=== PATIENT | male | born 1970 | race American Indian/Alaskan Native ===

== ENCOUNTER 2022-03-07 18:25 | Inpatient (IN) | payer OTHER ==
--- NOTE | 2022-03-07 19:41 | Event Note ---
Date: 03/07/22 Verbal report received from emergency medical services. EMS documentation not available at time of chart dictation Medical screening examination note: 51-year-old gentleman with a past history of stroke, presenting with weakness, lack of coordination, possible unsteady gait, last known well time is 6:00 AM yesterday morning. Patient is awake protecting airway and moving 4 extremities. Patient presents more than 24 hours after his last known well time. Therefore, tPA not indicated. Therefore, emergent CT angiogram head and neck not indicated. Check CT scan of the brain. Obtain EKG and appropriate laboratory studies. Detailed history and physical examination to be performed by oncoming provider Vital Signs 03/07/22 18:36 Temperature 98.6 F Pulse Rate 103 H Respiratory 20 Rate Blood Pressure 150/60 [Left] O2 Sat by Pulse 96 Oximetry
[2022-03-07 20:25] LABS: Basophils % (Auto) 0.7 % (0.0-1.8); Eosinophils % (Auto) 0.2 % (0.0-4.3); Hematocrit 47.2 % (35.5-45.6); Hemoglobin 15.2 gm/dl (11.8-15.2); Lymphocytes # (Auto) 2.7 K/mm3 (1.2-5.4); Lymphocytes % (Auto) 49.3 % (13.4-35.0); Mean Corpuscular HGB Conc 32 % (32-34); Mean Corpuscular Volume 88 fl (84-94); Monocytes # (Auto) 0.3 K/mm3 (0.0-0.8); Platelet Count 163 K/mm3 (140-440); Red Blood Count 5.37 M/mm3 (3.65-5.03); Red Cell Distribution Width 14.3 % (13.2-15.2)
[2022-03-07 20:27] LABS: Creatine Kinase MB 2.9 ng/mL (0.0-4.0)
[2022-03-07 20:29] LABS: Alanine Aminotransferase 23 units/L (7-56); Albumin 4.5 g/dL (3.9-5); BUN/Creatinine Ratio 15; Blood Urea Nitrogen 12 mg/dL (9-20); Calcium 9.5 mg/dL (8.4-10.2); Hemolysis Index 3
[2022-03-07 20:34] LABS: INR 0.98 (0.87-1.13)
[2022-03-07 20:35] LABS: Partial Thromboplastin Time 27.8 Sec. (24.2-36.6); Thrombin Time 18.5 Sec. (15.1-19.6)
--- NOTE | 2022-03-07 21:36 | Cat Scan Report ---
CT head/brain wo con INDICATION / CLINICAL INFORMATION: 51 years Male; Stroke symptoms. TECHNIQUE: Routine CT head without contrast. All CT scans at this location are performed using CT dos e reduction for ALARA by means of automated exposure control. COMPARISON: None. FINDINGS: BRAIN / INTRACRANIAL CONTENTS: There is a focus of decreased attenuation along the left iraheta radiat a measuring 1.2 cm in greatest AP dimension concerning for acute/subacute infarct given the history. The motion degrades the image quality. However, the brain otherwise demonstrate appropriate attenuati on for age. The ventricular system is within normal limits in size and configuration. There is no miriam ar CT evidence of acute intracranial hemorrhage. ORBITS: No significant abnormality of visualized orbits. SINUSES / MASTOIDS: No significant abnormality in the visualized paranasal sinuses or mastoid air bryan ls. CRANIOCERVICAL JUNCTION: No significant abnormality. ADDITIONAL FINDINGS: None. IMPRESSION: 1. There is a 1.2 cm focus of decreased attenuation along the left iraheta radiata indicative of acute /subacute infarct as detailed above. 2. There is no CT evidence of acute intracranial hemorrhage. Signer Name: Desean Rutherford MD Signed: 03/07/2022 9:31 PM Workstation Name: [id number]
--- NOTE | 2022-03-07 22:14 | XRay Report ---
CHEST 1 VIEW 03/07/2022 9:06 PM INDICATION / CLINICAL INFORMATION: Dyspnea. COMPARISON: None available. FINDINGS: SUPPORT DEVICES: None. HEART / MEDIASTINUM: No significant abnormality. LUNGS / PLEURA: No significant pulmonary abnormality. No significant pleural effusion. No pneumothora x. ADDITIONAL FINDINGS: No significant additional findings. IMPRESSION: 1. No acute abnormality of the chest. Signer Name: Thomas Vaca MD Signed: 03/07/2022 10:10 PM Workstation Name: [id number]
[2022-03-07] MEDS ORDERED: ASPIRIN 81 MG TAB CHEW PO ONE (22:41)
[2022-03-07] MEDS ORDERED: SODIUM CHLORIDE 0.9% 500 ML 500 ML IV ONE (22:42)
--- NOTE | 2022-03-08 04:53 | Emergency Department Report ---
ED General Adult HPI - General Chief complaint: Weakness Stated complaint: LOSS OF COORDINATION Time Seen by Provider: 03/07/22 21:28 Source: patient, EMS Mode of arrival: Stretcher Limitations: No Limitations - History of Present Illness Initial comments: PT ARRIVING FROM HOME, REPORTS FALL X2 TODAY. -LOC. HAS BEEN OFF [facility]ANA[facility] SINCE YESTERDAY MORNING. -: Gradual, days(s) (2) Location: head Associated Symptoms: headaches, weakness. denies: fever/chills - Related Data Allergies Allergy/AdvReac Type Severity Reaction Status Date / Time No Known Allergies Allergy Verified 03/07/22 18:39 ED Review of Systems ROS: Stated complaint: LOSS OF COORDINATION Other details as noted in HPI Constitutional: denies: chills, fever Eyes: denies: eye pain, eye discharge, vision change ENT: denies: ear pain, throat pain Respiratory: denies: cough, shortness of breath, wheezing Cardiovascular: denies: chest pain, palpitations Endocrine: no symptoms reported Gastrointestinal: denies: abdominal pain, nausea, diarrhea Genitourinary: denies: urgency, dysuria Musculoskeletal: denies: back pain, joint swelling, arthralgia Skin: denies: rash, lesions Neurological: denies: headache, weakness, paresthesias Psychiatric: denies: anxiety, depression Hematological/Lymphatic: denies: easy bleeding, easy bruising ED Past Medical Hx - Past Medical History Previous Medical History?: No Hx Hypertension: No ED Physical Exam - General Limitations: No Limitations General appearance: alert, in no apparent distress - Head Head exam: Present: atraumatic, normocephalic - Eye Eye exam: Present: normal appearance - ENT ENT exam: Present: mucous membranes moist - Neck Neck exam: Present: normal inspection - Respiratory Respiratory exam: Present: normal lung sounds bilaterally. Absent: respiratory distress - Cardiovascular Cardiovascular Exam: Present: regular rate, normal rhythm. Absent: systolic murmur, diastolic murmur, rubs, gallop - GI/Abdominal GI/Abdominal exam: Present: soft, normal bowel sounds - Rectal Rectal exam: Present: deferred - Extremities Exam Extremities exam: Present: normal inspection - Back Exam Back exam: Present: normal inspection - Neurological Exam Neurological exam: Present: alert, oriented X3 - Expanded Neurological Exam Expanded Patient oriented to: Present: person, place Best Eye Response ([place]): (4) open spontaneously Best Motor Response ([place]): (6) obeys commands Best Verbal Response ([place]): (5) oriented [place] Total: 15 - Psychiatric Psychiatric exam: Present: normal affect, normal mood - Skin Skin exam: Present: warm, dry, intact, normal color. Absent: rash ED Course Vital Signs 03/07/22 18:36 Temperature 98.6 F Pulse Rate 103 H Respiratory 20 Rate Blood Pressure 150/60 [Left] O2 Sat by Pulse 96 Oximetry ED Medical Decision Making - Lab Data Result diagrams: 03/07/22 19:52 03/07/22 19:52 - Radiology Data Radiology results: report reviewed, image reviewed - Medical Decision Making work up shwoed CVA in left iraheta radiata , no heorrhage, vss, no distress, spoke with dr Moore over [facility] initially accepted transfer pending beds, then Dr rojas called stating that no bed available , and asking if we can admit him here Critical care attestation.: If time is entered above; I have spent that time in minutes in the direct care of this critically ill patient, excluding procedure time. ED Disposition Clinical Impression: CVA (cerebral vascular accident), Weakness Disposition: ADMITTED INPATIENT Is pt being admited?: Yes Does the pt Need Aspirin: Yes Condition: Stable Referrals: SHIVANI ESPINO [Other] - 3-5 Days
[2022-03-08] MEDS ORDERED: PROMETHAZINE 25 MG RECT SUPP PR PRN (05:50)
[2022-03-08] MEDS ORDERED: MORPHINE 2 MG/1 ML INJ IV PRN ×2 (05:50→05:58)
[2022-03-08] MEDS ORDERED: DEXTROSE 50% IN WATER (25GM) 50 ML SYRINGE IV PRN (05:50)
[2022-03-08] MEDS ORDERED: ONDANSETRON 4 MG/2 ML INJ IV PRN ×2 (05:50)
[2022-03-08] MEDS ORDERED: MAGNESIUM HYDROXIDE (MOM) ORAL LIQD UDC PO PRN ×2 (05:50)
[2022-03-08] MEDS ORDERED: METOCLOPRAMIDE 10 MG TAB PO PRN (05:50)
[2022-03-08] MEDS ORDERED: ACETAMINOPHEN 325 MG TAB PO PRN ×2 (05:50)
[2022-03-08] MEDS ORDERED: MORPHINE 4 MG/1 ML INJ IV PRN ×2 (05:50→05:58)
--- NOTE | 2022-03-08 06:23 | History and Physical Report ---
History of Present Illness Date of examination: 03/08/22 Date of admission: 03/08/2022 Chief complaint: Falls Unsteady Gait History of present illness: 51-year-old -[place] male with known history of hypertension and diabetes mellitus presenting to the emergency room today with a complaint of unsteady gait and multiple falls which has been ongoing for the past 2 days. Patient states that he was at work and noticed that his gait was unsteady. He subsequently had 2 falls when he got home. He denies any dizziness, no blurry vision. He denies any head injury and no headache. Patient denies any fever or chills, no chest pain or shortness of breath. Work-up in the emergency room today, chest x-ray shows no acute abnormality. CT scan of the head shows:1. There is a 1.2 cm focus of decreased attenuation along the left iraheta radiata indicative of acute/subacute infarct as detailed above. 2. There is no CT evidence of acute intracranial hemorrhage. Labs were unremarkable. Patient has been admitted for CVA work-up. Past History Past Medical History: hypertension Past Surgical History: No surgical history Social history: no significant social history Family history: no significant family history Medications and Allergies Allergies Allergy/AdvReac Type Severity Reaction Status Date / Time No Known Allergies Allergy Verified 03/07/22 18:39 Active Meds: Active Medications Acetaminophen (Acetaminophen 325 Mg Tab) 650 mg PO Q4H PRN PRN Reason: Pain MILD(1-3)/Fever >100.5/SO Aspirin (Aspirin 325 Mg Tab) 325 mg PO QDAY MARILUZ Atorvastatin Calcium (Atorvastatin 40 Mg Tab) 40 mg PO QHS MARILUZ Bisacodyl (Bisacodyl 10 Mg Rect Supp) 10 mg [place] QDAY PRN PRN Reason: Constipation Dextrose (Dextrose 50% In Water (25gm) 50 Ml Syringe) 50 ml IV Q30MIN PRN; Protocol PRN Reason: Hypoglycemia Heparin Sodium (Porcine) (Heparin 5,000 Unit/1 Ml Vial) 5,000 unit SUB-Q Q8HR MARILUZ Insulin Human Lispro (Insulin Lispro 100 Unit/Ml) 0 unit SUB-Q ACHS MARILUZ; Protocol Magnesium Hydroxide (Magnesium Hydroxide (Mom) Oral Liqd Udc) 30 ml PO Q4H PRN PRN Reason: Constipation Metoclopramide HCl (Metoclopramide 10 Mg Tab) 10 mg PO Q6H PRN PRN Reason: Nausea And Vomiting Morphine Sulfate (Morphine 2 Mg/1 Ml Inj) 2 mg IV Q4H PRN PRN Reason: Pain, Moderate (4-6) Morphine Sulfate (Morphine 4 Mg/1 Ml Inj) 4 mg IV Q4H PRN PRN Reason: Pain , Severe (7-10) Ondansetron HCl (Ondansetron 4 Mg/2 Ml Inj) 4 mg IV Q8H PRN PRN Reason: Nausea And Vomiting Promethazine HCl (Promethazine 25 Mg Rect Supp) 25 mg MD Q6H PRN PRN Reason: Nausea And Vomiting Sodium Chloride (Sodium Chloride 0.9% 10 Ml Flush Syringe) 10 ml IV BID MARILUZ Sodium Chloride (Sodium Chloride 0.9% 10 Ml Flush Syringe) 10 ml IV PRN PRN PRN Reason: LINE FLUSH Review of Systems Constitutional: no fever, no chills Ears, nose, mouth and throat: no nasal congestion, no sore throat Cardiovascular: no chest pain, no palpitations Respiratory: no cough, no shortness of breath Gastrointestinal: no abdominal pain, no nausea, no vomiting, no diarrhea Genitourinary Male: no dysuria, no hematuria, no flank pain Musculoskeletal: no neck pain, no low back pain Integumentary: no rash, no pruritis Neurological: no headaches, no confusion Psychiatric: no anxiety, no depression Endocrine: no polyphagia, no polydipsia, no polyuria Exam - Constitutional Vitals: Temp Pulse Resp BP Pulse Ox 98.6 F 103 H 20 150/60 96 03/07/22 18:36 03/07/22 18:36 03/07/22 18:36 03/07/22 18:36 03/07/22 18:36 General appearance: Present: no acute distress, well-nourished - EENT Eyes: Present: PERRL, EOM intact. Absent: scleral icterus ENT: hearing intact, clear oral mucosa, dentition normal - Neck Neck: Present: supple, normal ROM - Respiratory Respiratory effort: normal Respiratory: bilateral: CTA - Cardiovascular Rhythm: regular Heart Sounds: Present: S1 & S2. Absent: gallop, systolic murmur, diastolic murmur, rub, click - Extremities Extremities: no ischemia, pulses intact, pulses symmetrical, No edema, normal temperature, normal color, Full ROM Peripheral Pulses: within normal limits - Abdominal General gastrointestinal: Present: soft, non-tender, non-distended, normal bowel sounds. Absent: mass - Integumentary Integumentary: Present: clear, warm, dry, normal turgor. Absent: rash - Musculoskeletal Musculoskeletal: strength equal bilaterally - Psychiatric Psychiatric: appropriate mood/affect, intact judgment & insight, memory intact, cooperative - Neurologic Neurologic: CNII-XII intact, no focal deficits, moves all extremities HEART Score - HEART Score Troponin: Troponin T < 0.010 ng/mL (0.00-0.029) 03/07/22 19:52 Results - Labs CBC & Chem 7: 03/07/22 19:52 03/07/22 19:52 Labs: Abnormal lab results 03/07/22 03/07/22 Range/Units 19:52 19:52 RBC 5.37 H (3.65-5.03) M/mm3 Hct 47.2 H (35.5-45.6) % Lymph % (Auto) 49.3 H (13.4-35.0) % Glucose 264 H (75-100) mg/dL Total Creatine Kinase 376 H (55-170) units/L Assessment and Plan - Patient Problems (1) CVA (cerebral vascular accident) Current Visit: Yes Status: Acute Plan to address problem: Patient placed on daily aspirin and statin. We will schedule patient for MRI of the brain, carotid Doppler and echocardiogram. Consult placed to neurology for further evaluation and recommendations. PT/OT consult (2) Hypertension Current Visit: Yes Status: Acute Plan to address problem: Will resume routine home medications once reconciled. Monitor vital signs closely. (3) Diabetes mellitus Current Visit: Yes Status: Acute Plan to address problem: Placed on sliding scale insulin. Will monitor Accu-Cheks. (4) DVT prophylaxis Current Visit: Yes Status: Acute Plan to address problem: Patient placed on subcutaneous heparin (5) Full code status Current Visit: Yes Status: Acute Plan to address problem: Patient is full code.
[2022-03-08] MEDS: INSULIN LISPRO 100 UNIT/ML SUB-Q SCH ×4 (08:22→21:44)
[2022-03-08 10:08] LABS: Chol/HDL Ratio 4.06 %
--- NOTE | 2022-03-08 10:13 | Magnetic Resonance Report ---
MRI BRAIN 03/08/2022 INDICATION / CLINICAL INFORMATION: stroke, BILAT. LEG WEAKNESS PATIENT MOTION, BEST POSSIBLE EXAM. TECHNIQUE: Multiplanar, multisequence MR images of the brain were obtained. COMPARISON: CT brain 03/07/2022 FINDINGS: BRAIN / INTRACRANIAL CONTENTS: Unenhanced MR images of the brain demonstrate 1.7 cm area of restricte d diffusion in the region of the posterior limb of the internal capsule on the left extending into th e left iraheta radiata, consistent with acute/recent ischemic injury. No other areas of restricted dif fusion are present. Brain parenchyma is otherwise unremarkable. Ventricles and sulci are normal in size and shape. There is no evidence of hemorrhage or mass. There are no abnormal extra-axial fluid collections. . EXTRACRANIAL: Unremarkable CRANIOCERVICAL JUNCTION: No significant abnormality. VASCULAR FLOW-VOIDS: No significant abnormality. IMPRESSION: 1.7 cm acute/recent left subcortical infarct. No evidence of hemorrhage. Signer Name: Nic Ernst MD Signed: 03/08/2022 10:08 AM Workstation Name: [id number]
[2022-03-08 10:26] LABS: Color,Urine Straw (Yellow)
[2022-03-08 10:27] LABS: Bilirubin,Urine Negative (Negative); Blood,Urine Negative (Negative); PH,Urine 6.5 (5.0-7.0); Urobilinogen,Urine < 2.0 mg/dL (<2.0)
[2022-03-08 10:37] LABS: Mucus,Urine 3+ /HPF
[2022-03-08] MEDS: ASPIRIN 325 MG TAB PO SCH (11:48)
--- NOTE | 2022-03-08 13:46 | Event Note ---
Date: 03/08/22 Patient seen in the ED. we discussed MRI and CT findings. Patient has history of hypertension and diabetes and has not been compliant with his medications recently. He currently only complains of lower back pain which is chronic. Physical therapy evaluated the patient and recommended IRU. Patient will prefer to go home with home health and PT services. Awaiting final result of echocardiogram and carotid Doppler prior to discharge.
[2022-03-08] MEDS: HEPARIN 5,000 UNIT/1 ML VIAL SUB-Q SCH ×2 (14:04→21:46)
--- NOTE | 2022-03-08 14:27 | Vascular Lab Report ---
DUPLEX DOPPLER ULTRASOUND CAROTID, BILATERAL INDICATION / CLINICAL INFORMATION: stroke. COMPARISON: None available. FINDINGS: RIGHT CAROTID: Mild atherosclerotic plaque. - PLAQUE ESTIMATE (%): < 50% - CCA velocity: 87 cm/sec. - ICA peak systolic velocity: 108 cm/sec. - ICA/CCA PSV Ratio: Less than 2. Right Vertebral Artery: Absent color Doppler blood flow. LEFT CAROTID: Mild atherosclerotic plaque. - PLAQUE ESTIMATE (%): < 50% - CCA velocity: 108 cm/sec. - ICA peak systolic velocity: 76 cm/sec. - ICA/CCA PSV Ratio: Less than 2. Left Vertebral Artery: Antegrade flow. IMPRESSION: 1. Right Internal Carotid Artery: Less than 50% diameter stenosis. 2. Left Internal Carotid Artery: Less than 50% diameter stenosis. 3. Right vertebral artery occlusion. Velocity criteria are extrapolated from diameter data as defined by the Society of Radiologists in [facility] Consensus Conference, Radiology 2003; 229;340-346. NO STENOSIS (NORMAL) - Plaque = none; ICA PSV < 125 cm/sec; ICA/CCA PSV Ratio < 2.0 <50% STENOSIS - Plaque < 50%; ICA PSV < 125 cm/sec; ICA/CCA PSV Ratio < 2.0 50-69% STENOSIS - Plaque > 50%; ICA PSV = 125-230 cm/sec; ICA/CCA PSV Ratio = 2.0-4.0 >70% BUT <100% STENOSIS - Plaque > 50%; ICA PSV > 230 cm/sec; ICA/CCA PSV Ratio > 4.0 NEAR OCCLUSION - Plaque = visible lumen; ICA PSV = high/low/none; ICA/CCA PSV Ratio = variable TOTAL OCCLUSION - Plaque = no lumen; ICA PSV = none; ICA/CCA PSV Ratio = N/A Scribed by: Dana Zuniga RDMS, RVT, RMSKS Scribed: 03/08/2022 12:44 PM I have reviewed the images, agree with this report, and edited this report as needed. Signer Name: Jonathan Enriquez MD Signed: 03/08/2022 2:22 PM Workstation Name: [id number]
--- NOTE | 2022-03-08 14:47 | Consultation ---
History of Present Illness Consult date: 03/08/22 Reason for Consult: cva Chief complaint: unsteady on feet History of present illness: 51 yo male with htn, dm, who presents with 2 days of unsteadiness especially with gait that led to two falls. NCHCT revealed a hypodensity concerning for an infarct. Notes no other symptoms except lower back pain. Past History Past Medical History: diabetes, hypertension Past Surgical History: No surgical history Social history: no significant social history Family history: no significant family history Medications and Allergies Allergies Allergy/AdvReac Type Severity Reaction Status Date / Time No Known Allergies Allergy Verified 03/07/22 18:39 Home Medications Medication Instructions Recorded Confirmed Last Taken Type Unobtainable 03/08/22 03/08/22 Unknown History Active Meds: Active Medications Acetaminophen (Acetaminophen 325 Mg Tab) 650 mg PO Q4H PRN PRN Reason: Pain MILD(1-3)/Fever >100.5/SO Aspirin (Aspirin 325 Mg Tab) 325 mg PO QDAY [facility] Last Admin: 03/08/22 11:48 Dose: 325 mg Atorvastatin Calcium (Atorvastatin 40 Mg Tab) 40 mg PO QHS MARILUZ Bisacodyl (Bisacodyl 10 Mg Rect Supp) 10 mg [place] QDAY PRN PRN Reason: Constipation Dextrose (Dextrose 50% In Water (25gm) 50 Ml Syringe) 50 ml IV Q30MIN PRN; Protocol PRN Reason: Hypoglycemia Heparin Sodium (Porcine) (Heparin 5,000 Unit/1 Ml Vial) 5,000 unit SUB-Q Q8HR [facility] Last Admin: 03/08/22 14:04 Dose: 5,000 unit Insulin Human Lispro (Insulin Lispro 100 Unit/Ml) 0 unit SUB-Q [facility]; Protocol Last Admin: 03/08/22 11:42 Dose: Not Given Magnesium Hydroxide (Magnesium Hydroxide (Mom) Oral Liqd Udc) 30 ml PO Q4H PRN PRN Reason: Constipation Metoclopramide HCl (Metoclopramide 10 Mg Tab) 10 mg PO Q6H PRN PRN Reason: Nausea And Vomiting Morphine Sulfate (Morphine 2 Mg/1 Ml Inj) 2 mg IV Q4H PRN PRN Reason: Pain, Moderate (4-6) Morphine Sulfate (Morphine 4 Mg/1 Ml Inj) 4 mg IV Q4H PRN PRN Reason: Pain , Severe (7-10) Ondansetron HCl (Ondansetron 4 Mg/2 Ml Inj) 4 mg IV Q8H PRN PRN Reason: Nausea And Vomiting Promethazine HCl (Promethazine 25 Mg Rect Supp) 25 mg [place] Q6H PRN PRN Reason: Nausea And Vomiting Sodium Chloride (Sodium Chloride 0.9% 10 Ml Flush Syringe) 10 ml IV BID MARILUZ Last Admin: 03/08/22 11:48 Dose: 10 ml Sodium Chloride (Sodium Chloride 0.9% 10 Ml Flush Syringe) 10 ml IV PRN PRN PRN Reason: LINE FLUSH Review of Systems All systems: negative (as per hpi;) Physical Examination - Vital Signs Vital Signs: Vital Signs Temp Pulse Resp BP Pulse Ox 98.6 F 103 H 20 150/60 96 03/07/22 18:36 03/07/22 18:36 03/07/22 18:36 03/07/22 18:36 03/07/22 18:36 - Physical Exam Narrative exam: Gen: nad, well-nourished; Head: normocephalic; Eyes: no gaze deviation; no ptosis; ENT: normal vocalization; CVS: warm and well-perfused; Pulm: no respiratory distress; GI: appears non-distended; Ext: no cyanosis appreciated at distal extremities; Skin: no acute rash at distal extremities; Heme: no pathologic ecchymosis appreciated at distal extremities; Neuro: alert, oriented to name, age, month, year, surroundings, no dysarthria, no aphasia, CN 2 - PERRL, visual victoria grossly intact, CN 3, 4, 6 - EOMI, CN 5 - facial sensation symmetric to light touch, CN 7 - facial movement symmetric, CN 8 - hearing grossly intact, CN 9, 10 - uvula midline, CN 11 symmetric shoulder movement, CN 12 - tongue midline; Motor - at least 4+/5 at all exts with 4/5 at lue/lle; Sensory - light touch symmetric, Cerebellar - fnf /hts intact, Gait - deferred secondary to fall risk; NIHSS (1a.) Level of Consciousness:0 (1b.) LOC Questions:0 (1c.) LOC Commands:0 (2.) Best Gaze:0 (3.) Visual:0 (4.) Facial Palsy:0 (5a.) Motor Arm, Left:0 (5b.) Motor Arm, Right:0 (6a.) Motor Leg, Left:1 (6b.) Motor Leg, Right:0 (7.) Limb Ataxia:0 (8.) Sensory:0 (9.) Best Language:0 (10.) Dysarthria:0 (11.) Extinction and Inattention:0 NIHSS Total Score: 1 Results - Laboratory Findings CBC and BMP: 03/07/22 19:52 03/07/22 19:52 Abnormal Lab Findings: Abnormal Labs 03/07/22 03/07/22 03/08/22 19:52 19:52 09:34 RBC 5.37 H Hct 47.2 H Lymph % (Auto) 49.3 H Glucose 264 H Hemoglobin A1c 11.0 H Total Creatine Kinase 376 H Assessment and Plan 51 yo male with htn, dm, who presents with two days of unsteady gait with noted left subcortical infarction on mri brain but pt notes left-sided weakness on exam. 1. Acute Ischemic Stroke - asa 81 mg po qday; plavix 75 mg po qdayx21 days); statin therapy for a goal ldl of <70; ech with ef of 55%; cus negative for any significant carotid stenosis; lipid panel ordered; pt/ot evaluation/monitoring; stroke education upon discharge; f/u with stroke neurology in 4 weeks. 2. Acute Left-sided Weakness / Unsteady Gait - pt/ot evaluation/monitoring. 3. Hypertension - permissive htn for another 24 more hours. 4. DM - maintain euglycemia and goal hgba1c of 6.0 or less. 5. Acute on Chronic Back pain w/ lower extremity weakness - mri lumbar spine ordered. Cuco Jimenez MD Neurology [id number]
[2022-03-09 04:46] LABS: Basophils % (Auto) 0.2 % (0.0-1.8); Hematocrit 43.7 % (35.5-45.6); Hemoglobin 15.5 gm/dl (11.8-15.2); Lymphocytes # (Auto) 1.5 K/mm3 (1.2-5.4); Lymphocytes % (Auto) 16.1 % (13.4-35.0); Mean Corpuscular HGB Conc 35 % (32-34); Mean Corpuscular Volume 87 fl (84-94); Platelet Count 278 K/mm3 (140-440); Red Blood Count 5.04 M/mm3 (3.65-5.03); Red Cell Distribution Width 13.3 % (13.2-15.2)
[2022-03-09 05:05] LABS: BUN/Creatinine Ratio 16; Blood Urea Nitrogen 13 mg/dL (9-20); Calcium 9.3 mg/dL (8.4-10.2); Hemolysis Index 10
[2022-03-09] MEDS: HEPARIN 5,000 UNIT/1 ML VIAL SUB-Q SCH (05:57)
[2022-03-09] MEDS: INSULIN LISPRO 100 UNIT/ML SUB-Q SCH ×2 (08:41→11:45)
--- NOTE | 2022-03-09 10:04 | Magnetic Resonance Report ---
MR lumbar spine wo con INDICATION / CLINICAL INFORMATION: Lower back pain w/ unsteady feet. TECHNIQUE: Multisequence, multiplanar images of the lumbar spine were obtained. COMPARISON: None available. FINDINGS: NOMENCLATURE: For the purposes of this report, L5-S1 is defined as axial image 37 of series 6. ALIGNMENT: Normal alignment. VERTEBRAE:Active Modic type I degenerative endplate edema at L4-5. The edema does not extend across t he disc space to suggest spondylodiscitis and the sharpness of the endplates is maintained. Minimal e katharina surrounds a Schmorl's node involving the anterior inferior T12 endplate. No aggressive osseous m arrow signal. Vertebral body heights are preserved. VISUALIZED SPINAL CORD: The conus appears within normal limits. [id number] ANALYSIS: L1-2: Minimal disc bulge. No significant spinal canal stenosis. Mild right and no significant left fo raminal narrowing. L2-3: Small disc bulge. No significant spinal canal stenosis. Mild right greater than left foraminal narrowing. L3-4: Small disc bulge. No significant spinal canal stenosis. Mild left and no significant right fora patria narrowing. L4-5: Small disc bulge with covering osteophytes. Advanced facet arthropathy. Mild edema in the periv entricular soft tissues and articular processes. Moderate left greater than right foraminal narrowing and mild spinal canal stenosis. L5-S1: Minimal anterolisthesis of L5 on S1. Small disc bulge. Advanced arthropathy. No significant sp inal canal stenosis. Moderate bilateral foraminal narrowing. PARASPINAL SOFT TISSUES: No significant abnormality. ADDITIONAL FINDINGS: None. IMPRESSION: 1. Advanced L4-5 and L5-S1 facet arthropathy with associated active facet synovitis at L4-5 which ca n be a pain generator. There is also Modic type I degenerative endplate edema at L4-5 2. Spondylosis most pronounced L4-5 and L5-S1 as above with moderate bilateral foraminal narrowing. Correlate for L4 and L5 nerve root symptoms. Definitions used for the purposes of this report: Lumbar canal stenosis (Tiffani et al. Br J Radiol. 2013 December;86(7803):[id number]): No stenosis: No attenuation of the CSF spaces Mild stenosis: Anterior CSF space mildly obliterated Moderate stenosis: Anterior CSF space is moderately obliterated; cauda equina partially aggregated Severe stenosis: Marked compression of the dural sac; cauda equina cannot be visually and a ppear as a bundle Lumbar lateral recess stenosis (Brittanie et al. World J Radiol. 2017 January 27;9(5):223-229): No stenosis: Nerve root is bathed in fluid Mild stenosis: Narrowing of the lateral recess without root deviation Moderate stenosis: Narrowing of the recess with nerve root deviation Severe stenosis: Compression of the nerve root Lumbar neural foraminal stenosis (Jani et al. AJR Am J Roentgenol. 2010 Dec;194(4):1095-8): No stenosis: No attenuation of the fat in the foramen Mild stenosis: Loss of the fat in the foramen on two sides Moderate stenosis: Loss of the fat in the foramen all four sides Severe stenosis: Loss of the fat in the foramen all four sides and compression of the nerve root Signer Name: Jonathan Enriquez MD Signed: 03/09/2022 10:00 AM Workstation Name: [id number]
[2022-03-09] MEDS: ASPIRIN 325 MG TAB PO SCH (10:45)
[2022-03-09 12:07] VITALS: BP 157/84
--- NOTE | 2022-03-09 12:27 | Discharge Summary ---
Providers - Providers Date of Admission: 03/08/22 05:51 Date of discharge: 03/08/22 Attending physician: ASHELY RAZA MD 03/08/22 Consult to Physician [CONS] Routine Comment: Consulting Provider: JAMIE LOVE Physician Instructions: Reason For Exam: CVA 03/08/22 05:51 Consult to Dietitian/Nutrition [CONS] Routine Physician Instructions: Reason For Exam: Reason for Consult: Nutrition Recommendations Reason for Consult: Diet education Occupational Therapy Evaluate and Treat [CONS] Routine Comment: Reason For Exam: Neuro deficits Physical Therapy Evaluation and Treat [CONS] Routine Comment: Reason For Exam: Neuro deficits 03/08/22 13:46 Consult to Case Management [CONS] Routine Services Needed at Discharge: Physical Therapy Home Health Services Notified:: immigration case worker Hospitalization Reason for admission: CVA Condition: Stable Hospital course: Patient is a 51-year-old male with history of chronic back pain, hypertension, type 2 diabetes who presented with unsteady gait and multiple falls. CT of the head showed a 1.2 cm focus of decreased attenuation along the left iraheta radiata indicative of acute/subacute infarct. MRI of the brain showed a 1.7 cm acute left subcortical infarct without evidence of hemorrhage. Neurology evaluated patient prior to discharge. Echocardiogram showed normal ejection fraction. Carotid Doppler showed less than 50% stenosis bilateral internal carotid arteries and occluded right vertebral artery. Patient was started on aspirin, Plavix and statin. Physical therapy recommended home health with physical therapy. Once stable, patient was discharged home. Disposition: 30 STILL A PATIENT Final Discharge Diagnosis (Prints w/discharge instructions): Acute ischemic CVA. Hypertension. Type 2 diabetes. medication noncompliance. Chronic back pain Time spent for discharge: 35 minutes Core Measure Documentation - Palliative Care Palliative Care/ Comfort Measures: Not Applicable - Core Measures Any of the following diagnoses?: stroke - Stroke Discharge Requirements Statin for LDL = or >70 mg/dl on DC: Yes Anticoag for atrial fib/atrial flutter: Not Applicable Antithrombotic for ischemic stroke: Yes Exam - Physical Exam Narrative exam: GENERAL: Well-developed well-nourished. In no acute distress. HEENT: Normocephalic. Atraumatic. CHEST/LUNGS: CTAB on room air HEART/CARDIOVASCULAR: RRR. No murmur, rubs or gallops appreciated. ABDOMEN: +BS. NT/ND. NEURO: Mild right upper extremity weakness improved from yesterday. MUSCULOSKELETAL: No joint effusion EXTREMITIES: No cyanosis, clubbing or edema. PSYCH: Cooperative. - Constitutional Vitals: Temp Pulse Resp BP Pulse Ox 98.6 F 95 H 16 157/84 92 03/09/22 11:56 03/09/22 11:56 03/09/22 11:56 03/09/22 11:56 03/09/22 11:56 Plan Care Plan Goals: Please follow-up with your primary care provider at discharge. From imaging it is confirmed that you've had a stroke. Please start taking all your medications as prescribed. It is important that you take all of your medications especially your blood pressure and diabetes medications to reduce your risk of future strokes. We have started a medication called Plavix that you will be taking for the next 20 days. [facility] Prescriptions: AtorvaSTATin [Lipitor] 40 mg PO QHS 90 Days #90 tablet Aspirin 325 mg PO QDAY 90 Days #90 tablet hydroCHLOROthiazide [HCTZ] 25 mg PO QDAY 90 Days #90 tablet Clopidogrel [Plavix] 75 mg PO QDAY 20 Days #20 tablet lisinopriL [Zestril TAB] 40 mg PO QDAY 90 Days #90 tab
--- NOTE | 2022-03-09 17:47 | Electrocardiograph Report ---
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
== END 2022-03-09 14:20 | disposition home health service (06) | DRG 64 ==
LOC: ED 18:25 → 4A 03-08 05:51
PROVIDERS: ADMIT Internal Medicine Geriatric Medicine; ATTEND Student in an Organized Health Care Education/Training Program
DX: I63.9 Cerebral infarction, unspecified (principal); U07.1 COVID-19; G81.94 Hemiplegia, unspecified affecting left nondominant side; I10 Essential (primary) hypertension; E11.9 Type 2 diabetes mellitus without complications; G89.29 Other chronic pain; M54.9 Dorsalgia, unspecified; Z91.14 Patient's other noncompliance with medication regimen
CPT/HCPCS: 36415; 70450; 70551; 71045; 72148; 80048; 80053; 80061; 80320; 81001; 82550; 82553; 82962; 83036; 83735; 84484; 85025; 85610; 85670; 85730; 93005; 93306; 93880; G0378; Q9967; C8929; G0480; J1644; J1815; J7040; U0003